=== PATIENT | female | born 1970 | race Caucasian/White ===

== ENCOUNTER → 2024-02-16 07:15 | Outpatient (REF) | payer BC, SELFPAY | LOC: WDC 07:15 | PROVIDERS: ATTENDING PHYSICIAN Obstetrics & Gynecology; FAMILY PHYSICIAN Family Medicine | DX: Z12.31 Encounter for screening mammogram for malignant neoplasm of breast (principal) | CPT/HCPCS: 77063; 77067 ==

== ENCOUNTER 2024-04-23 08:43 | Emergency (ER) | payer BC, SELFPAY ==
[2024-04-23 08:44] VITALS: BP 123/81
[2024-04-23 09:38] VITALS: BP 106/77
--- NOTE | 2024-04-23 09:42 | ED.GENMED ---
History of Present Illness
General
Chief Complaint: DVT/Possible Blood Clot
Source: patient
Time Seen by Provider: 04/23/24 08:53
History of Present Illness
History of Present Illness:
54-year-old female presents emergency department complaints of the gradual onset of right-sided calf pain that she first noted on Sunday and is getting progressively worse. She describes it as in the popliteal fossa and calf area described as
'stiff' now noted to be 'tender' and swollen. She also questions a potential bruise in the calf area on the right side. She denies recent trauma or fall, numbness, tingling, weakness, chest pain, dyspnea, fever, chills, or other complaints.
Patient was seen in urgent care yesterday but was unable to get an ultrasound done at that time. She denies recent surgery, recent trauma. She did take a 3-1/2-hour car ride over the weekend.
Past History
Past History
ED Past Medical History: Other (Thyroid cancer)
ED Past Surgical History: Appendectomy, Orthopedic and Other (Thyroidectomy)
Social History
Tobacco: Non-smoker
Alcohol: None
Drug: None
Personal:
Living: with family
Employment: Employed
Phy Exam
Physical Exam
Physical Exam:
GENERAL: Alert , in no apparent distress
EYE: pupils equal and reactive
NECK: Supple, no significant adenopathy.
ENT: o/p clr, mmm.
CARDIAC: Regular rate and rhythm .
LUNGS: Clear breath sounds bilaterally, no acute respiratory distress, no wheezes/rales/rhonchi
ABDOMEN: Soft, without focal tenderness, no r/g, no cvat
NEUROLOGICAL: Alert and oriented, no focal neuro deficits
SKIN: Warm and dry, skin intact.
MUSCULOSKELETAL: 2+ dp pulses bilat, well perfused. FROM. There is mild swelling/ttp noted R calf, neg marquita's, nvit, no redness/warmth/fluctuance/open wund.
PSYCH: Normal and appropriate interaction.
Course
Orders/Labs/Results
Orders:
Orders
04/23/24 08:53
US Legs, Right [US Periph Venous LOWER Ext RT] Urgent
Comment:
Reason For Exam: pain
Vital Signs
Initial and Last Documented VS:
Initial Vital Signs
Temp Pulse Resp BP Pulse Ox
98.2 F 79 18 123/81 100
04/23/24 08:44 04/23/24 08:44 04/23/24 08:44 04/23/24 08:44 04/23/24 08:44
Last Documented Vital Signs
Temp Pulse Resp BP Pulse Ox
98.2 F 83 16 106/77 98
04/23/24 08:44 04/23/24 09:38 04/23/24 09:38 04/23/24 09:38 04/23/24 09:38
Update Note
Update Note:
Patient presents to the Emergency Department with __leg/calf swelling
Number and Complexity of Problems Addressed at the Encounter
� Chronic conditions affecting care:
� Acute Exacerbation and/or Progression of Chronic Illness:
� Differential Diagnosis includes: But not limited to DVT, superficial thrombophlebitis, Daley's cyst, etc.
Amount and/or Complexity of Data to be Reviewed and Analyzed
� I performed an independent evaluation of and my interpretation is:
EKG:
CT:
Xrays:
Laboratory Studies:
Other: Ultrasound report read by radiology no DVT, cyst noted consistent with Daley's cyst
� Review of other/old records reveals:
� Clinical information was obtained by an independent historian:
� Prescriptions/Medications Considered but not given:
� Further testing considered but not performed:
Risk of Complications and/or Morbidity or Mortality of Patient Management
� Social determinants of health affecting care:
� Discussion with other providers (PCP, Hospitalists, Consultants, etc):
� Escalation of care including admission/observation vs risk of discharge considered: Patient given copy of ultrasound report, precautions, discussed with her importance of follow-up and reasons return to the ER.
ED Attending Note
-
Portions of this chart may have been created with voice recognition software.� Occasional wrong word or��sound alike� substitutions may have occurred due to the inherent limitations of voice recognition software.
Discharge Plan
Departure
Patient Disposition: Home (Routine Discharge)
Date of Disposition: 04/23/24
Time of Disposition: 09:54
Patient with high blood pressure during this ER visit?: Yes
Condition: Good
Discharge Problem:
Daley's cyst
Instructions: Daley's Cyst (DC), BLOOD PRESSURE
Prescriptions:
No Action
levothyroxine 150 MCG tablet
150 mcg PO DAILY
levofloxacin 500 MG tablet
500 mg PO DAILY Qty: 0 0RF
Referrals:
Robert Mujica MD [Family Provider] - Follow up in 2-3 days
Activity Restrictions/Additional Instructions:
IF YOU DEVELOP INCREASING/NEW PAIN OR SWELLING, CHEST PAIN, TROUBLE BREATHING, FEVER, REDNESS/WARMTH/NUBMNESS, OR OTHER WORRISOME SIGNS, GO TO THE ER IMMEDIATELY!
Interventions
Interventions:
*Risk Screen - Suicide Last Done: 04/23/24 08:56
*General Assessment Last Done: 04/23/24 08:56
*Neglect/Abuse Screening Last Done: 04/23/24 08:56
*ED COVID-19 Vaccine History Last Done: 04/23/24 08:56
ED- Cardiac Assessment Last Done: 04/23/24 08:56
ED- Pulmonary Assessment Last Done: 04/23/24 08:56
ED-Peripheral Vascular Assessment Last Done: 04/23/24 08:56
ED-Skin Assessment Last Done: 04/23/24 08:56
Discharge Date and Time
Print Language: TELUGU
[2024-04-23 10:12] VITALS: BP 112/77
== END 2024-04-23 10:13 | disposition home or self-care (01) ==
LOC: EMR 08:43
PROVIDERS: EMERGENCY PHYSICIAN Emergency Medicine; FAMILY PHYSICIAN Family Medicine
DX: M71.21 Synovial cyst of popliteal space [Baker], right knee (principal); M79.661 Pain in right lower leg; R03.0 Elevated blood-pressure reading, without diagnosis of hypertension; Z85.850 Personal history of malignant neoplasm of thyroid
CPT/HCPCS: 99284; 93971

== ENCOUNTER → 2024-09-24 15:54 | Outpatient (REF) | payer SELFPAY | LOC: RAD 15:54 | PROVIDERS: ATTENDING PHYSICIAN Family Medicine; FAMILY PHYSICIAN Family Medicine | DX: E78.2 Mixed hyperlipidemia (principal) | CPT/HCPCS: 75571 ==

== ENCOUNTER → 2024-10-24 07:55 | Outpatient (REF) | payer BC, SELFPAY | LOC: HWRAD 07:55 | PROVIDERS: ATTENDING PHYSICIAN Family Medicine | DX: R91.1 Solitary pulmonary nodule (principal) | CPT/HCPCS: 71250 ==

== ENCOUNTER → 2025-02-18 13:05 | Outpatient (REF) | payer BC, SELFPAY | LOC: WDC 13:05 | PROVIDERS: ATTENDING PHYSICIAN Obstetrics & Gynecology; FAMILY PHYSICIAN Family Medicine | DX: Z12.31 Encounter for screening mammogram for malignant neoplasm of breast (principal) | CPT/HCPCS: 77063; 77067 ==

== ENCOUNTER → 2025-07-27 12:41 | Outpatient (REF) | payer BC, SELFPAY | LOC: HWRAD 12:41 | PROVIDERS: ATTENDING PHYSICIAN Obstetrics & Gynecology; FAMILY PHYSICIAN Family Medicine | DX: D21.9 Benign neoplasm of connective and other soft tissue, unspecified (principal) | CPT/HCPCS: 76830; 76856 ==